=== PATIENT | female | born 1945 | race Caucasian/White ===

== ENCOUNTER 2021-01-01 18:45 | Emergency (ER) | payer SELFPAY ==
[2021-01-01 19:06] VITALS: BP 184/88; PULSE 82; RESP 18; TEMP 36.6; O2SAT 98; BMI 22.8
[2021-01-01 20:24] LABS: COVID19 - ADMIT (NP swab/PCR) Negative (Negative)
--- NOTE | 2021-01-01 20:31 | ED.RECABL ---
HPI - Recheck/Abnormal Lab/Rx General Chief Complaint: Recheck/Abnormal Lab/Rx Stated Complaint: Needs COVID Test For Travel Time Seen by Provider: 01/01/21 18:52 Source: patient Mode of arrival: Ambulatory Limitations: no limitations History of Present Illness HPI narrative: 75-year-old nonsmoker with noncontributory medical history presents requesting a COVID test in order to fly internationally. She has no symptoms and is otherwise well and free of complaint Related Data Allergies Allergy/AdvReac Type Severity Reaction Status Date / Time codeine Allergy Verified 01/01/21 19:06 Review of Systems Constitutional Constitutional: Denies body ache(s), Denies chills and Denies fever(s) ENT Ears, Nose, Mouth, and Throat: Denies sore throat Cardiovascular Cardiovascular: Denies chest pain and Denies dyspnea Respiratory Respiratory: Denies dyspnea Patient History Social History Smoking Status: Never smoker Smoking Status: Never smoker Substance Use Type: does not use Exam Narrative Exam Narrative: GEN: AOx3 and in mild distress EYES: Pupils are equal, round, and reactive to light and accommodation. Extraoccular muscles are intact bilaterally. There is no subconjunctival hemorrhage or exudate. CHEST: Lungs are clear to auscultation bilaterally and free of wheezes, rales, or rhonchi. Heart rate is regular rhythm, there are no murmurs, clicks, rubs, or gallops. There is no chest wall tenderness. ABD: Abdomen is soft and nontender. There is no guarding or rebound. Bowel sounds are normal in all 4 quadrants. There is no mass or organomegaly. EXT: Full painless ROM of all extremities with no loss of sensation or strength. SKIN: Warm, pink, and dry. No erythema or rash Initial Vital Signs Initial Vital Signs: Vital Signs Temperature 97.9 F 01/01/21 19:06 Pulse Rate 82 01/01/21 19:06 Respiratory Rate 18 01/01/21 19:06 Blood Pressure 184/88 H 01/01/21 19:06 Pulse Oximetry 98 01/01/21 19:06 Course Orders Ordered: ED Orders 01/01/21 19:15 COVID19 - ADMIT ([employer] swab/PCR) Stat Vital Signs Vital signs: Vital Signs - 8 hr 01/01/21 19:06 Temperature 97.9 F Pulse Rate 82 Respiratory Rate 18 Blood Pressure 184/88 H Pulse Oximetry 98 MDM - Recheck/Abnormal Lab/Rx Lab Data Labs: Lab Results 01/01/21 Range/Units 19:15 SARS-CoV-2 (PCR) Negative (Negative) Discharge Plan Departure Patient Disposition: Home Clinical Impression: Feared complaint without diagnosis Instructions: Coronavirus Disease 2019 Activity Restrictions/Additional Instructions: There is no evidence of an emergent or life threatening illness at this time, but follow up with your doctor in 1-2 days is recommended nonetheless to continue to rule out serious underlying causes of your symptoms. Please call the office for an appointment. Please return to the Emergency Department for any worsening or persistent symptoms. Please take medications as directed. [employer]
== END 2021-01-01 20:49 | disposition home or self-care (01) ==
PROVIDERS: Emergency Provider Emergency Medicine
DX: Z20.822 Contact with and (suspected) exposure to COVID-19 (principal)
CPT/HCPCS: 87635; 99281; 99282; C9803